=== PATIENT | female | born 1965 | race Caucasian/White ===

== ENCOUNTER → 2023-05-25 10:16 | Outpatient (CLI) | payer MEDICARE, SELFPAY ==
[2023-05-25 12:26] LABS: TSH w/ Reflex to FT4 0.07 uIU/mL (0.47-4.68)
[2023-05-25 13:05] LABS: Free T4, Direct Thyroxine 2.02 ng/dL (0.78-2.19)
== END ==
LOC: LAB 10:19
PROVIDERS: PCP Physician Assistant; Referring Provider Obstetrics & Gynecology; Visit Provider Obstetrics & Gynecology
DX: E03.9 Hypothyroidism, unspecified (principal)
CPT/HCPCS: 36415; 84439; 84443

== ENCOUNTER → 2023-06-22 10:01 | Outpatient (CLI) | payer MEDICARE, SELFPAY ==
[2023-06-22 12:36] LABS: TSH w/ Reflex to FT4 0.02 uIU/mL (0.47-4.68)
[2023-06-22 21:16] LABS: Free T4, Direct Thyroxine 1.22 ng/dL (0.78-2.19)
== END ==
LOC: LAB 10:03
PROVIDERS: PCP Physician Assistant; Referring Provider Obstetrics & Gynecology; Visit Provider Obstetrics & Gynecology
DX: E03.9 Hypothyroidism, unspecified (principal)
CPT/HCPCS: 36415; 84439; 84443